=== PATIENT | male | born 1955 | race Caucasian/White ===

== ENCOUNTER 2020-03-26 09:39 | Inpatient (IN) | payer MEDICAID, OTHER ==
[~2020-03-26] VITALS: Ht 170.2 cm; Wt 77.6 kg
[~2020-03-26 09:39] MED LIST: ASPI-1497 PO
[2020-03-26] MEDS ORDERED: ACETAMINOPHEN 325MG TABLET PO STA (10:22)
[2020-03-26] MEDS ORDERED: AZITHROMYCIN 500 MG in DEXT 5% WATER 250 ML IV ONE (10:30)
[2020-03-26] MEDS ORDERED: CEFTRIAXONE 1 G PREMIX 50 ML IV ONE (10:30)
[2020-03-26 10:43] LABS: BASOPHILS % 0.1 % (0.0-2.0); HEMATOCRIT. 44.4 % (42.0-52.0); HEMOGLOBIN. 15.2 g/dL (14.0-18.0); LYMPHOCYTES % 10.4 % (20.0-50.0); MEAN CORPUSCULAR HEMOGLOBIN 28.9 pg (28.0-32.0); MEAN CORPUSCULAR VOLUME 84.3 fL (80.0-94.0); MEAN PLATELET VOLUME 9.8 fl (7.4-10.4); MONOCYTES % 2.8 % (2.0-8.0); NEUTROPHILS % 86.7 % (40.0-76.0); PLATELET 145 x1000/uL (130-400); RED BLOOD CELL COUNT 5.26 mill/uL (4.7-6.1); RED CELL DISTRIBUTION WIDTH 13.6 % (11.6-14.6)
[2020-03-26 10:50] LABS: CHLORIDE 97 mEq/L (98-107)
[2020-03-26] MEDS ORDERED: CLONIDINE 0.1MG TABLET PO PRN (14:45)
[2020-03-26] MEDS ORDERED: DIPHENHYDRAMINE 50MG/ML VIAL IV PRN (14:45)
[2020-03-26] MEDS ORDERED: CEFTRIAXONE 1 G PREMIX 50 ML IV SCH (14:45)
[2020-03-26] MEDS ORDERED: ACETAMINOPHEN 325MG TABLET PO PRN ×2 (14:45)
[2020-03-26] MEDS ORDERED: DEXTROSE 50% WATER 50ML SYRINGE IV PRN (14:45)
[2020-03-26] MEDS ORDERED: ONDANSETRON HCL 4MG/2ML INJ IV PRN (14:45)
[2020-03-26] MEDS ORDERED: GUAIFENESIN 200MG/10ML SUGAR FREE UDC PO PRN (14:45)
[2020-03-26] MEDS ORDERED: ALBUTEROL 6.7GM HFA INHALER ORI PRN (15:30)
[2020-03-26] MEDS: ENOXAPARIN 80MG/0.8ML SYR SUBCUT SCH (16:56)
[2020-03-26] MEDS: DEXAMETHASONE 4MG TABLET PO SCH (16:56)
[2020-03-26] MEDS: BLOOD SUGAR DIAGNOSTIC STRIP TEST SCH ×2 (17:11→20:51)
[2020-03-26] MEDS: INSULIN LISPRO 100 UNITS/ML SUBCUT SCH ×2 (17:11→21:00)
[2020-03-26 18:13] VITALS: BP 131/65
[2020-03-26 20:00] VITALS: BP 115/66
[2020-03-26] MEDS: GUAIFENESIN 600MG ER TABLET PO SCH (20:50)
[2020-03-26] MEDS: SODIUM CHLORIDE 0.9% INJ 3ML FLUSH IVF SCH (20:50)
[2020-03-27 00:07] VITALS: BP 110/69
[2020-03-27 04:00] VITALS: BP 114/70
[2020-03-27] MEDS: SODIUM CHLORIDE 0.9% INJ 3ML FLUSH IVF SCH ×3 (05:45→21:30)
[2020-03-27] MEDS: ENOXAPARIN 80MG/0.8ML SYR SUBCUT SCH ×2 (05:45→16:57)
[2020-03-27] MEDS: BLOOD SUGAR DIAGNOSTIC STRIP TEST SCH ×4 (05:58→21:13)
[2020-03-27 06:35] LABS: PROTHROMBIN TIME 10.5 sec (9.6-11.0)
[2020-03-27 08:00] VITALS: BP 108/88
[2020-03-27] MEDS: INSULIN LISPRO 100 UNITS/ML SUBCUT SCH ×4 (08:10→21:24)
[2020-03-27] MEDS: GUAIFENESIN 600MG ER TABLET PO SCH ×2 (08:35→21:13)
[2020-03-27] MEDS: DEXAMETHASONE 4MG TABLET PO SCH (08:35)
[2020-03-27] MEDS ORDERED: AZITHROMYCIN 500 MG in DEXT 5% WATER 250 ML IV SCH ×4 (11:00)
[2020-03-27] MEDS: CEFTRIAXONE 1,000 MG in DEXTROSE 5% WATER 50 ML IV SCH (11:01)
[2020-03-27 12:00] VITALS: BP 111/77
[2020-03-27 16:13] VITALS: BP 106/69
[2020-03-27] MEDS: ALBUTEROL 6.7GM HFA INHALER ORI SCH (17:49)
[2020-03-27 20:00] VITALS: BP 118/76
[2020-03-28] VITALS (7 sets, daily range): BP systolic 106–118; BP diastolic 63–76
[2020-03-28] MEDS: SODIUM CHLORIDE 0.9% INJ 3ML FLUSH IVF SCH ×3 (05:30→21:50)
[2020-03-28] MEDS: ENOXAPARIN 80MG/0.8ML SYR SUBCUT SCH ×2 (05:30→16:45)
[2020-03-28] MEDS: ALBUTEROL 6.7GM HFA INHALER ORI SCH ×4 (05:31→17:07)
[2020-03-28] MEDS: BLOOD SUGAR DIAGNOSTIC STRIP TEST SCH ×4 (06:50→21:48)
[2020-03-28] MEDS: INSULIN LISPRO 100 UNITS/ML SUBCUT SCH ×4 (07:18→21:50)
[2020-03-28] MEDS: DEXAMETHASONE 4MG TABLET PO SCH (09:04)
[2020-03-28] MEDS: CEFTRIAXONE 1,000 MG in DEXTROSE 5% WATER 50 ML IV SCH (09:04)
[2020-03-28] MEDS: GUAIFENESIN 600MG ER TABLET PO SCH ×2 (09:04→21:48)
[2020-03-28] MEDS: ASPIRIN 81MG TABLET PO SCH (18:23)
[2020-03-28] MEDS: ZOLPIDEM TARTRATE 5MG TABLET PO PRN (22:03)
[2020-03-29] VITALS: BP 112/68
[2020-03-29 04:00] VITALS: BP 109/66
[2020-03-29] MEDS: ENOXAPARIN 80MG/0.8ML SYR SUBCUT SCH ×2 (05:35→17:13)
[2020-03-29] MEDS: ALBUTEROL 6.7GM HFA INHALER ORI SCH ×5 (05:39→23:24)
[2020-03-29] MEDS: SODIUM CHLORIDE 0.9% INJ 3ML FLUSH IVF SCH ×3 (05:39→22:12)
[2020-03-29] MEDS: BLOOD SUGAR DIAGNOSTIC STRIP TEST SCH ×4 (06:42→20:27)
[2020-03-29] MEDS: INSULIN LISPRO 100 UNITS/ML SUBCUT SCH ×4 (07:26→20:27)
[2020-03-29 08:00] VITALS: BP 116/71
[2020-03-29] MEDS: DEXAMETHASONE 4MG TABLET PO SCH (08:43)
[2020-03-29] MEDS: ASPIRIN 81MG TABLET PO SCH (08:43)
[2020-03-29] MEDS: GUAIFENESIN 600MG ER TABLET PO SCH ×2 (08:43→20:25)
[2020-03-29] MEDS: CEFTRIAXONE 1,000 MG in DEXTROSE 5% WATER 50 ML IV SCH (08:47)
[2020-03-29 12:00] VITALS: BP 118/82
[2020-03-29 16:00] VITALS: BP 126/76
[2020-03-29 20:00] VITALS: BP 109/67
[2020-03-29] MEDS: ZOLPIDEM TARTRATE 5MG TABLET PO PRN (20:25)
[2020-03-30] VITALS: BP 118/82
[2020-03-30] MEDS: MAGNESIUM/ALUMINUM HYDROXIDE/SIMETHICONE 30ML UDC PO PRN (00:20)
[2020-03-30] MEDS: SODIUM CHLORIDE 0.9% INJ 3ML FLUSH IVF SCH ×3 (05:56→21:47)
[2020-03-30] MEDS: ENOXAPARIN 80MG/0.8ML SYR SUBCUT SCH ×2 (05:56→16:18)
[2020-03-30] MEDS: BLOOD SUGAR DIAGNOSTIC STRIP TEST SCH ×4 (06:03→21:47)
[2020-03-30] MEDS: ALBUTEROL 6.7GM HFA INHALER ORI SCH ×3 (06:04→18:03)
[2020-03-30] MEDS: INSULIN LISPRO 100 UNITS/ML SUBCUT SCH ×4 (07:41→21:46)
[2020-03-30 07:45] LABS: BASOPHILS % 0.3 % (0.0-2.0); HEMATOCRIT. 40.4 % (42.0-52.0); HEMOGLOBIN. 13.7 g/dL (14.0-18.0); LYMPHOCYTES % 14.8 % (20.0-50.0); MEAN CORPUSCULAR HEMOGLOBIN 28.7 pg (28.0-32.0); MEAN CORPUSCULAR VOLUME 84.6 fL (80.0-94.0); MEAN PLATELET VOLUME 10.2 fl (7.4-10.4); MONOCYTES % 5.5 % (2.0-8.0); NEUTROPHILS % 79.4 % (40.0-76.0); PLATELET 248 x1000/uL (130-400); RED BLOOD CELL COUNT 4.77 mill/uL (4.7-6.1); RED CELL DISTRIBUTION WIDTH 13.5 % (11.6-14.6)
[2020-03-30 08:00] VITALS: BP 121/79
[2020-03-30 08:17] LABS: CHLORIDE 106 mEq/L (98-107)
[2020-03-30] MEDS: ASPIRIN 81MG TABLET PO SCH (08:48)
[2020-03-30] MEDS: GUAIFENESIN 600MG ER TABLET PO SCH ×2 (08:49→21:47)
[2020-03-30] MEDS: DEXAMETHASONE 4MG TABLET PO SCH (08:49)
[2020-03-30] MEDS: CEFTRIAXONE 1,000 MG in DEXTROSE 5% WATER 50 ML IV SCH (10:34)
[2020-03-30 12:00] VITALS: BP 110/75
[2020-03-30 16:00] VITALS: BP 118/76
[2020-03-30 20:00] VITALS: BP 122/72
[2020-03-31] VITALS: BP 112/71
[2020-03-31] MEDS: ALBUTEROL 6.7GM HFA INHALER ORI SCH ×5 (00:17→23:08)
[2020-03-31] MEDS: MAGNESIUM/ALUMINUM HYDROXIDE/SIMETHICONE 30ML UDC PO PRN (01:36)
[2020-03-31 04:00] VITALS: BP 101/63
[2020-03-31] MEDS: SODIUM CHLORIDE 0.9% INJ 3ML FLUSH IVF SCH ×3 (05:22→21:07)
[2020-03-31] MEDS: ENOXAPARIN 80MG/0.8ML SYR SUBCUT SCH ×2 (05:22→18:18)
[2020-03-31] MEDS: BLOOD SUGAR DIAGNOSTIC STRIP TEST SCH ×4 (07:30→21:08)
[2020-03-31] MEDS: INSULIN LISPRO 100 UNITS/ML SUBCUT SCH ×4 (07:30→21:00)
[2020-03-31 08:00] VITALS: BP 133/82
[2020-03-31] MEDS: DEXAMETHASONE 4MG TABLET PO SCH (08:39)
[2020-03-31] MEDS: ASPIRIN 81MG TABLET PO SCH (08:39)
[2020-03-31] MEDS: GUAIFENESIN 600MG ER TABLET PO SCH ×2 (08:39→21:07)
[2020-03-31] MEDS: CEFTRIAXONE 1,000 MG in DEXTROSE 5% WATER 50 ML IV SCH (09:10)
[2020-03-31 12:00] VITALS: BP 110/49
[2020-03-31 16:00] VITALS: BP 119/58
[2020-03-31] MEDS ORDERED: REMDESIVIR 200 MG in SODIUM CHLORIDE 0.9% 250 ML IV NR (16:00)
[2020-03-31 20:00] VITALS: BP 115/65
[2020-04-01] VITALS: BP 105/67
[2020-04-01] MEDS: MAGNESIUM/ALUMINUM HYDROXIDE/SIMETHICONE 30ML UDC PO PRN (00:10)
[2020-04-01 04:00] VITALS: BP 110/64
[2020-04-01] MEDS: ALBUTEROL 6.7GM HFA INHALER ORI SCH ×4 (05:20→23:11)
[2020-04-01] MEDS: SODIUM CHLORIDE 0.9% INJ 3ML FLUSH IVF SCH ×3 (05:20→20:55)
[2020-04-01] MEDS: ENOXAPARIN 80MG/0.8ML SYR SUBCUT SCH ×2 (05:20→16:38)
[2020-04-01 06:58] LABS: CHLORIDE 105 mEq/L (98-107)
[2020-04-01] MEDS: INSULIN LISPRO 100 UNITS/ML SUBCUT SCH ×4 (07:56→20:54)
[2020-04-01] MEDS: BLOOD SUGAR DIAGNOSTIC STRIP TEST SCH ×4 (07:56→20:55)
[2020-04-01 08:00] VITALS: BP 108/66
[2020-04-01] MEDS: ASPIRIN 81MG TABLET PO SCH (08:57)
[2020-04-01] MEDS: GUAIFENESIN 600MG ER TABLET PO SCH ×2 (08:58→20:54)
[2020-04-01] MEDS: DEXAMETHASONE 4MG TABLET PO SCH (08:58)
[2020-04-01 12:00] VITALS: BP 99/55
[2020-04-01] MEDS: REMDESIVIR 100 MG in SODIUM CHLORIDE 0.9% 250 ML IV SCH (13:10)
[2020-04-01 16:00] VITALS: BP 114/70
[2020-04-01 20:00] VITALS: BP 108/64
[2020-04-02] VITALS (7 sets, daily range): BP systolic 86–109; BP diastolic 45–67
[2020-04-02] MEDS: ENOXAPARIN 80MG/0.8ML SYR SUBCUT SCH ×2 (05:28→16:57)
[2020-04-02] MEDS: ALBUTEROL 6.7GM HFA INHALER ORI SCH ×3 (05:28→16:57)
[2020-04-02] MEDS: SODIUM CHLORIDE 0.9% INJ 3ML FLUSH IVF SCH ×3 (05:28→21:17)
[2020-04-02 06:26] LABS: CHLORIDE 108 mEq/L (98-107)
[2020-04-02] MEDS: BLOOD SUGAR DIAGNOSTIC STRIP TEST SCH ×4 (07:40→21:18)
[2020-04-02] MEDS: INSULIN LISPRO 100 UNITS/ML SUBCUT SCH ×4 (08:10→21:18)
[2020-04-02] MEDS ORDERED: SODIUM CHLORIDE 0.9% 500 ML IV ONE (10:15)
[2020-04-02] MEDS: ASPIRIN 81MG TABLET PO SCH (11:18)
[2020-04-02] MEDS: GUAIFENESIN 600MG ER TABLET PO SCH ×2 (11:19→21:16)
[2020-04-02] MEDS: DEXAMETHASONE 4MG TABLET PO SCH (11:19)
[2020-04-02] MEDS: REMDESIVIR 100 MG in SODIUM CHLORIDE 0.9% 250 ML IV SCH (14:28)
[2020-04-03] VITALS: BP 93/56
[2020-04-03 04:00] VITALS: BP 95/58
[2020-04-03] MEDS: SODIUM CHLORIDE 0.9% INJ 3ML FLUSH IVF SCH ×3 (05:10→21:12)
[2020-04-03] MEDS: ALBUTEROL 6.7GM HFA INHALER ORI SCH ×3 (05:10→18:34)
[2020-04-03] MEDS: ENOXAPARIN 80MG/0.8ML SYR SUBCUT SCH ×2 (05:10→17:18)
[2020-04-03 05:43] LABS: CHLORIDE 107 mEq/L (98-107)
[2020-04-03] MEDS: BLOOD SUGAR DIAGNOSTIC STRIP TEST SCH ×4 (07:16→21:35)
[2020-04-03 08:00] VITALS: BP 95/64
[2020-04-03] MEDS: INSULIN LISPRO 100 UNITS/ML SUBCUT SCH ×4 (08:10→21:00)
[2020-04-03] MEDS: ASPIRIN 81MG TABLET PO SCH (08:55)
[2020-04-03] MEDS: DEXAMETHASONE 2MG TABLET PO SCH (08:56)
[2020-04-03] MEDS: GUAIFENESIN 600MG ER TABLET PO SCH ×2 (08:56→21:12)
[2020-04-03 12:00] VITALS: BP 105/73
[2020-04-03] MEDS: REMDESIVIR 100 MG in SODIUM CHLORIDE 0.9% 250 ML IV SCH (14:59)
[2020-04-03 16:00] VITALS: BP 114/76
[2020-04-03 20:00] VITALS: BP 92/78
[2020-04-04] MEDS: ALBUTEROL 6.7GM HFA INHALER ORI SCH ×4 (01:07→23:21)
[2020-04-04] MEDS: SODIUM CHLORIDE 0.9% INJ 3ML FLUSH IVF SCH ×3 (05:39→20:54)
[2020-04-04] MEDS: ENOXAPARIN 80MG/0.8ML SYR SUBCUT SCH ×2 (05:39→17:02)
[2020-04-04] MEDS: BLOOD SUGAR DIAGNOSTIC STRIP TEST SCH ×4 (06:59→20:54)
[2020-04-04] MEDS: INSULIN LISPRO 100 UNITS/ML SUBCUT SCH ×4 (07:34→20:53)
[2020-04-04 08:00] VITALS: BP 97/56
[2020-04-04] MEDS: ASPIRIN 81MG TABLET PO SCH (08:47)
[2020-04-04] MEDS: GUAIFENESIN 600MG ER TABLET PO SCH ×2 (08:47→20:53)
[2020-04-04] MEDS: DEXAMETHASONE 2MG TABLET PO SCH (08:47)
[2020-04-04 09:28] LABS: CHLORIDE 108 mEq/L (98-107)
[2020-04-04 12:00] VITALS: BP 102/66
[2020-04-04] MEDS: REMDESIVIR 100 MG in SODIUM CHLORIDE 0.9% 250 ML IV SCH (14:59)
[2020-04-04 16:00] VITALS: BP 92/54
[2020-04-04 20:00] VITALS: BP 90/50
[2020-04-05] VITALS (7 sets, daily range): BP systolic 91–100; BP diastolic 49–63
[2020-04-05] MEDS: ENOXAPARIN 80MG/0.8ML SYR SUBCUT SCH ×2 (04:50→17:35)
[2020-04-05] MEDS: SODIUM CHLORIDE 0.9% INJ 3ML FLUSH IVF SCH ×3 (05:00→20:34)
[2020-04-05] MEDS: ALBUTEROL 6.7GM HFA INHALER ORI SCH ×4 (05:00→23:15)
[2020-04-05] MEDS: BLOOD SUGAR DIAGNOSTIC STRIP TEST SCH ×4 (07:40→20:34)
[2020-04-05] MEDS: INSULIN LISPRO 100 UNITS/ML SUBCUT SCH ×4 (08:10→20:34)
[2020-04-05] MEDS: ASPIRIN 81MG TABLET PO SCH (08:25)
[2020-04-05] MEDS: DEXAMETHASONE 2MG TABLET PO SCH (08:26)
[2020-04-05] MEDS: GUAIFENESIN 600MG ER TABLET PO SCH ×2 (08:26→20:34)
[2020-04-05] MEDS ORDERED: SODIUM CHLORIDE 0.9% 500 ML IV NR (15:45)
[2020-04-06] VITALS: BP 100/60
[2020-04-06 04:00] VITALS: BP 95/58
[2020-04-06] MEDS: SODIUM CHLORIDE 0.9% INJ 3ML FLUSH IVF SCH ×3 (04:47→21:24)
[2020-04-06] MEDS: ENOXAPARIN 80MG/0.8ML SYR SUBCUT SCH ×2 (04:47→16:57)
[2020-04-06] MEDS: ALBUTEROL 6.7GM HFA INHALER ORI SCH ×3 (05:33→17:25)
[2020-04-06] MEDS: BLOOD SUGAR DIAGNOSTIC STRIP TEST SCH ×4 (07:24→21:19)
[2020-04-06] MEDS: INSULIN LISPRO 100 UNITS/ML SUBCUT SCH ×4 (07:24→21:23)
[2020-04-06 08:00] VITALS: BP 148/80
[2020-04-06] MEDS: GUAIFENESIN 600MG ER TABLET PO SCH ×2 (09:48→21:19)
[2020-04-06] MEDS: ASPIRIN 81MG TABLET PO SCH (09:48)
[2020-04-06] MEDS: DEXAMETHASONE 2MG TABLET PO SCH (09:48)
[2020-04-06 12:00] VITALS: BP 104/67
[2020-04-06 16:00] VITALS: BP 97/60
[2020-04-06 20:00] VITALS: BP 94/49
[2020-04-07] VITALS: BP 95/58
[2020-04-07] MEDS: ALBUTEROL 6.7GM HFA INHALER ORI SCH ×4 (00:49→17:53)
[2020-04-07 04:00] VITALS: BP 97/55
[2020-04-07] MEDS: SODIUM CHLORIDE 0.9% INJ 3ML FLUSH IVF SCH ×2 (05:18→14:54)
[2020-04-07] MEDS: ENOXAPARIN 80MG/0.8ML SYR SUBCUT SCH ×2 (05:18→17:53)
[2020-04-07] MEDS: INSULIN LISPRO 100 UNITS/ML SUBCUT SCH ×3 (07:30→17:54)
[2020-04-07] MEDS: BLOOD SUGAR DIAGNOSTIC STRIP TEST SCH ×3 (07:30→16:54)
[2020-04-07 08:00] VITALS: BP 90/50
[2020-04-07] MEDS: ASPIRIN 81MG TABLET PO SCH (08:29)
[2020-04-07] MEDS: GUAIFENESIN 600MG ER TABLET PO SCH (08:29)
[2020-04-07] MEDS: DEXAMETHASONE 2MG TABLET PO SCH (08:30)
[2020-04-07 11:40] LABS: BG BASE EXCESS 0.3 mmol/L (-2.0-2.0); BG CARBOXYHEMOGLOBIN 0.3 % (0.5-1.5); BG DEOXYHEMOGLOBIN 4.7 % (0.0-5.0); BG FRACTION INSPIRED OXYGEN 28; BG HCO3 ACT 24.5 mmol/L (22.0-26.0); BG OXYGEN SATURATION 95.3 % (92.0-98.5); BG PCO2 38.2 mmHg (35.0-45.0); BG PH 7.425 (7.350-7.450); BG PO2 76.9 mmHg (75.0-100.0); BG SAMPLE SITE RIGHT BRACHIAL; BG TOTAL HEMOGLOBIN 13.5 g/dL (12.0-18.0); BG VENT MODE NASAL CANNULA
[2020-04-07 12:00] VITALS: BP 100/62
[2020-04-07 13:07] LABS: BG BASE EXCESS 1.4 mmol/L (-2.0-2.0); BG CARBOXYHEMOGLOBIN 0.2 % (0.5-1.5); BG DEOXYHEMOGLOBIN 7.4 % (0.0-5.0); BG FRACTION INSPIRED OXYGEN 21; BG HCO3 ACT 25.7 mmol/L (22.0-26.0); BG METHEMOGLOBIN 0.3 % (0.0-1.5); BG OXYGEN SATURATION 92.6 % (92.0-98.5); BG OXYHEMOGLOBIN 92.1 % (94.0-97.0); BG PCO2 39.4 mmHg (35.0-45.0); BG PH 7.432 (7.350-7.450); BG PO2 63.2 mmHg (75.0-100.0); BG SAMPLE SITE RIGHT BRACHIAL; BG TOTAL HEMOGLOBIN 13.8 g/dL (12.0-18.0); BG VENT MODE ROOM AIR
[2020-04-07 16:00] VITALS: BP 103/58
[2020-04-07 17:33] VITALS: BP 103/58
[2020-04-08] MEDS ORDERED: DEXAMETHASONE 4MG TABLET PO SCH (09:00)
== END 2020-04-07 18:24 | disposition home or self-care (01) | DRG 720 ==
LOC: ER 09:39 → 7WST 10:59 → EDBEDREQ 11:09 → EDBEDREQTM 11:09 → ENRESERV 15:38
PROVIDERS: ADMIT Internal Medicine; ATTEND Internal Medicine
PROC: XW033E5 Introduction of Remdesivir Anti-infective into Peripheral Vein, Percutaneous Approach, New Technology Group 5 (ICD-10-PCS; principal; 2020-03-31)
DX: A41.89 Other specified sepsis (principal); U07.1 COVID-19; J96.01 Acute respiratory failure with hypoxia; J12.89 Other viral pneumonia; R94.31 Abnormal electrocardiogram [ECG] [EKG]; R65.20 Severe sepsis without septic shock; D72.810 Lymphocytopenia; E11.9 Type 2 diabetes mellitus without complications; E44.0 Moderate protein-calorie malnutrition; E78.5 Hyperlipidemia, unspecified; E87.1 Hypo-osmolality and hyponatremia; E78.00 Pure hypercholesterolemia, unspecified; Z85.46 Personal history of malignant neoplasm of prostate; Z68.26 Body mass index [BMI] 26.0-26.9, adult
CPT/HCPCS: 36415; 36600; 71045; 80048; 80053; 82375; 82728; 82805; 82962; 83036; 83615; 83880; 84145; 84484; 85025; 85379; 86140; 93005; 99291; J0456; J0696; J1650; J1815; J7050; J7060; J8540; Q9957; U0003-CS

== ENCOUNTER 2022-07-29 03:28 | Emergency (ER) | payer MEDICAID, OTHER ==
[~2022-07-29] VITALS: Ht 172.7 cm; Wt 79.8 kg
[2022-07-29 03:39] VITALS: BP 147/91
== END 2022-07-29 06:40 | disposition home or self-care (01) ==
LOC: ER 03:28
DX: R41.3 Other amnesia (principal); I10 Essential (primary) hypertension; Z98.890 Other specified postprocedural states
CPT/HCPCS: 99281